=== PATIENT | male | born 2005 | race Caucasian/White ===

== ENCOUNTER 2023-07-03 11:21 | Emergency (ER) | payer OTHER ==
[~2023-07-03] VITALS: Ht 165.1 cm; Wt 68.2 kg
[2023-07-03] MEDS ORDERED: NAPR-885 PO (11:45)
[2023-07-03] MEDS ORDERED: LIDO1PAD TOP (11:46)
[2023-07-03 12:31] LABS: BASO % 0.7 % (0.0-1.0); EOS # 0.2 10^3/uL (0.0-0.5); EOS % 2.6 % (0.0-3.0); HEMATOCRIT 41.8 % (42.0-52.0); HEMOGLOBIN 14.7 g/dl (13.5-17.5); LYMPH # 2.5 10^3/uL (1.5-5.0); LYMPH % 43.3 % (24.0-44.0); MEAN CORPUSCULAR HEMOGLOBIN 30.1 pg (27.0-33.0); MEAN CORPUSCULAR HGB CONC 35.2 g/dl (32.0-36.5); MEAN CORPUSCULAR VOLUME 85.5 fl (80.0-96.0); MONO # 0.5 10^3/uL (0.0-0.8); MONO % 9.2 % (2.0-8.0); NEUTROPHILS # 2.6 10^3/uL (1.5-8.5); PLATELET COUNT, AUTOMATED 301 10^3/uL (150-450); RED BLOOD COUNT 4.89 10^6/uL (4.30-6.10); WHITE BLOOD COUNT 5.8 10^3/uL (4.0-10.0)
[2023-07-03 12:58] LABS: CK-MB VALUE MASS < 1.0 NG/ML (<3.6)
[2023-07-03 12:59] LABS: LIPASE 28 U/L (12-53)
[2023-07-03 13:01] LABS: ALBUMIN 4.2 G/DL (3.2-5.2); ALKALINE PHOSPHATASE 95 U/L (46-116); ALT/SGPT 23 U/L (7.0-40); AST/SGOT 16 U/L (<34); BILIRUBIN,DIRECT 0.3 MG/DL (<0.4); BILIRUBIN,TOTAL 0.6 MG/DL (0.3-1.2); BLOOD UREA NITROGEN 16 MG/DL (9-23); CALCIUM LEVEL 9.8 MG/DL (8.5-10.1); CARBON DIOXIDE LEVEL 29 MMOL/L (20-31); CHLORIDE LEVEL 105 MMOL/L (98-107); CREATININE FOR GFR 0.87 MG/DL (0.70-1.30); GLUCOSE, FASTING 96 MG/DL (60-100); POTASSIUM SERUM 4.3 MMOL/L (3.5-5.1); SODIUM LEVEL 140 MMOL/L (136-145); TOTAL PROTEIN 7.6 G/DL (5.7-8.2)
[2023-07-03 13:03] LABS: THYROID STIMULATING HORMONE 1.044 uIU/ML (0.48-4.17)
[2023-07-03 13:06] LABS: CPK CREATINE PHOSPHOKINASE 171 U/L (46-171); MB/CK RELATIVE INDEX 0.58 (< OR =4)
[2023-07-03 14:21] VITALS: BP 124/87; TEMP 97.8; O2SAT 99
== END 2023-07-03 15:14 | disposition home or self-care (01) ==
LOC: M ED 11:21
DX: R07.9 Chest pain, unspecified (principal); I10 Essential (primary) hypertension; Z79.891 Long term (current) use of opiate analgesic; Z79.1 Long term (current) use of non-steroidal anti-inflammatories (NSAID)